=== PATIENT | female | born 1955 | race Caucasian/White ===

== ENCOUNTER 2017-02-07 22:02 | Emergency (ER) | payer BC, OTHER ==
[2017-02-08] MEDS ORDERED: CLONIDINE HCL 0.1 MG TABLET PO ONE (00:50)
[2017-02-08] MEDS ORDERED: CLONIDINE HCL 0.1 MG TABLET ONE (00:56)
--- NOTE | 2017-02-08 02:12 | ERNOTE ---
Medical Problem HPI - Narrative Date of Service: 02/08/17 - General Chief Complaint: Screening, Blood Pressure Time Seen by Provider: 02/08/17 00:49 - Immun/Allergies/Home Medications Immunizations: IMMUNIZATION HX Immunizations Up to Date No History of Influenza Vaccine Yes Hx Pneumococcal Vaccination Yes Allergies/Adverse Reactions: Allergies CAIN Inhibitors [Cain Inhibitors] Adverse Reaction (Mild, Verified 01/16/16 20:19) cough Home Medications: HOME MEDICATIONS Alprazolam [Xanax] 0.5 - 1 mg PO HS PRN 09/22/12 [Last Taken 11/14/14] Aspirin [Aspirin Chewable] 81 mg PO DAILY 09/22/12 [Last Taken 11/14/14] Albuterol Sulfate [Proair Hfa] 1 - 2 puff IH Q4H PRN #1 inhaler 11/13/14 [Last Taken 11/14/14] Albuterol Sulfate/Ipratropium [Duoneb 2.5-0.5MG/3ML Soln] 3 ml IH TID #7 nebu [Last Taken 11/14/14] Ibuprofen [Motrin] 2 tab PO Q8H PRN #0 11/13/14 [Last Taken 11/14/14] Acetaminophen [Tylenol] 650 mg PO Q6H PRN 01/16/16 [Last Taken Unknown] Cyclobenzaprine HCl [Flexeril] 10 mg PO TID PRN #30 tablet 01/17/16 [Last Taken Unknown] Losartan/Hydrochlorothiazide [Hyzaar 100-25 Tablet] 1 each PO DAILY 02/07/17 [ Last Taken Unknown] Potassium Chloride [K-Dur] 20 meq PO DAILY 02/07/17 [Last Taken Unknown] - History of Present History Narrative: PATIENT IS HERE FOR CONCERNS ABOUT HER BLOOD PRESSURE BEING TOO HIGH EVER SINCE PCP MADE A MEDICATION CHANGE ( TWO WEEKS AGO) BECAUSE HER INSURANCE WOULD NOT COVER HER OLD MEDICATION, BENICAR. HE SAW HER SATURDAY AND ADDED A DIURETIC AND WANTS TO SEE HER BACK ON SATURDAY FOR RECHECK. SHE SAYS AT HOME TONIGHT IT WAS GOING UP TO 200/100 RANGE. SHE C/O FEELING FUNNY IN THE HEAD. NO WEAKNESS OR SLURRED SPEECH OR VISUAL PROBLEMS. Review of Systems - Review of Systems Constitutional: Present: See HPI EYE: Present: no symptoms reported ENT: Present: no symptoms reported Respiratory: Present: no symptoms reported Cardiology: Present: edema Gastrointestinal/Abdominal: Present: no symptoms reported Genitourinary: Present: no symptoms reported Musculoskeletal: Present: no symptoms reported Skin: Present: no symptoms reported Neurological: Present: See HPI, dizziness/light-headedness Endocrine: Present: no symptoms reported Hematologic/Lymphatic: Present: no symptoms reported Psych: Present: no symptoms reported All Other Systems: All systems neg except as marked - Patient's Past Medical History Patient History - Medical: Anxiety Patient History - Cardiac/Respiratory: Hypertension, Hyperlipidemia, Pneumonia Patient History - Cancer: No Hx of Cancer Patient History - Surgical Procedures: Appendectomy, Hysterectomy, Other Patient History - Other: None - Family History Mother Family History - Medical: Other Father Family History - Medical: Diabetes Type 2 Sister Family History - Medical: Diabetes Type 2 Insulin Dependent, Other Brother Family History - Medical: Diabetes Type 2, Other - Social History Living Situations: home Abuse History: No History of abuse Psych History: Hx of Anxiety Smoking Status: Former smoker Have you smoked in the past 12 months: No Do you dip or chew tobacco: No Alcohol Use: none Drug Use: none - Immunizations Immunizations Up to Date: No Hx Pneumococcal Vaccination: Yes History of Influenza Vaccine: Yes Physical Exam - Physical Exam General Appearance: Present: wd/wn, alert, no apparent distress - OBESE SL. ANXIOUS LADY WITH HTN. Eye Exam: Normal inspection: bilateral Ears, Nose, Throat: Present: normal ENT inspection Neck: Present: normal inspection. Absent: carotid bruit Respiratory: Present: no respiratory distress, normal breath sounds, no accessory muscle use, chest nontender, lungs clear Cardiovascular/Chest: Present: regular rate, rhythm, no murmur, normal peripheral pulses Extremity Exam: Present: normal inspection, normal range of motion Neurological Exam: Present: alert, oriented, normal mood/affect Skin Exam: Present: normal color ED Progress - Vital Signs Patient's Vital Signs:: I have reviewed the patient's vital signs. Vital Signs: Vital Signs 02/07/17 02/07/17 02/07/17 22:11 22:23 23:30 Temperature 36.9 C Pulse Rate 92 87 Respiratory 20 19 Rate Blood Pressure 188/103 188/103 208/105 O2 Sat by Pulse 96 97 Oximetry 02/07/17 02/08/17 02/08/17 23:45 00:15 00:56 Temperature Pulse Rate 87 84 85 Respiratory 19 21 H 20 Rate Blood Pressure 198/100 185/102 185/102 O2 Sat by Pulse 96 97 97 Oximetry 02/08/17 02/08/17 02/08/17 00:58 01:00 01:25 Temperature Pulse Rate 86 89 89 Respiratory 20 20 Rate Blood Pressure 185/102 188/93 173/87 O2 Sat by Pulse 97 96 Oximetry - EKG EKG: NSR, other - LAD, , LOW VOLTAGENO CHANGE FROM 11/03/2010 - Progress/Reassessment Chief Complaint: Screening, Blood Pressure Plan - Plan Plan: PT'S BP DECREASED AFTER CLONIDINE 0.02 MG P.O. AND SHE FEELS BETTER. MOST RECENT PRESSURE = 157/74 Departure - Departure Clinical Impression: Hypertension Qualifiers: Hypertension type: essential hypertension Qualified Code(s): I10 - Essential ( primary) hypertension Disposition: Home Follow Up Needed Condition: Good Instructions: Hypertension, [id number] Additional Instructions: RECHECK WITH YOUR FAMILY DOCTOR SATURDAY PLANNED . LET THEM KNOW YOU WERE HERE AND WE GAVE A SINGLE DOSE OF CLONIDINE 0.02 MG P.O. WHICH BROUGHT IT DOWN. HE WILL LET YOU KNOW IF HE THINKS ANY MEDICATION ADJUSTMENTS ARE NEEDED. Referrals: Karen Portillo MD [Primary Care Provider] -
[2017-02-08 02:44] VITALS: BP 150/82
== END 2017-02-08 02:05 | disposition home or self-care (01) ==
LOC: ER 22:02
DX: I10 Essential (primary) hypertension (principal); F41.9 Anxiety disorder, unspecified; Z87.891 Personal history of nicotine dependence

== ENCOUNTER 2017-02-13 00:11 | Emergency (ER) | payer OTHER ==
--- NOTE | 2017-02-13 01:04 | ERNOTE ---
Medical Problem HPI - General Chief Complaint: Screening, Blood Pressure Time Seen by Provider: 02/13/17 00:45 Source: patient, family - Immun/Allergies/Home Medications Immunizations: IMMUNIZATION HX Immunizations Up to Date Yes History of Influenza Vaccine Yes Hx Pneumococcal Vaccination Yes Allergies/Adverse Reactions: Allergies CAIN Inhibitors [Cain Inhibitors] Adverse Reaction (Mild, Verified 02/13/17 00:28) cough Home Medications: HOME MEDICATIONS Alprazolam [Xanax] 0.5 - 1 mg PO HS PRN 09/22/12 [Last Taken 11/14/14] Aspirin [Aspirin Chewable] 81 mg PO DAILY 09/22/12 [Last Taken 11/14/14] Albuterol Sulfate [Proair Hfa] 1 - 2 puff IH Q4H PRN #1 inhaler 11/13/14 [Last Taken 11/14/14] Albuterol Sulfate/Ipratropium [Duoneb 2.5-0.5MG/3ML Soln] 3 ml IH TID #7 nebu [Last Taken 11/14/14] Ibuprofen [Motrin] 2 tab PO Q8H PRN #0 11/13/14 [Last Taken 11/14/14] Acetaminophen [Tylenol] 650 mg PO Q6H PRN 01/16/16 [Last Taken Unknown] Losartan/Hydrochlorothiazide [Hyzaar 100-25 Tablet] 1 each PO DAILY 02/07/17 [ Last Taken Unknown] Potassium Chloride [K-Dur] 10 meq PO DAILY 02/07/17 [Last Taken Unknown] Amlodipine Besylate 5 mg PO HS 02/13/17 [Last Taken 02/12/17 20:30] - History of Present History Narrative: Pt has been controlled on a single anti-hypertensive agent for many years. Her insurance company decided to not cover that medication anymore. Since switching to another agent she has had very high blood pressure and had her medications changes multiple times. Timing: getting worse Severity: moderate, severe Modifying Factors - (Improves): Present: medication - improved her BP this am but didn't help tonight Review of Systems - Review of Systems Constitutional: Present: no symptoms reported EYE: Present: no symptoms reported ENT: Present: no symptoms reported Respiratory: Present: no symptoms reported. Absent: shortness of breath Cardiology: Absent: chest pain, palpitations Gastrointestinal/Abdominal: Present: no symptoms reported Genitourinary: Present: no symptoms reported Musculoskeletal: Absent: back pain, muscle pain Skin: Present: no symptoms reported Neurological: Present: headache. Absent: dizziness/light-headedness Endocrine: Present: no symptoms reported Hematologic/Lymphatic: Present: no symptoms reported Psych: Present: no symptoms reported - Patient's Past Medical History Patient History - Medical: Anxiety Patient History - Cardiac/Respiratory: Hypertension, Hyperlipidemia, Pneumonia Patient History - Cancer: No Hx of Cancer Patient History - Surgical Procedures: Appendectomy, Hysterectomy, Other Patient History - Other: None - Family History Mother Family History - Medical: Other Father Family History - Medical: Diabetes Type 2 Sister Family History - Medical: Diabetes Type 2 Insulin Dependent, Other Brother Family History - Medical: Diabetes Type 2, Other - Social History Living Situations: home Abuse History: No History of abuse Psych History: Hx of Anxiety, Current tx/ever been on anti-depressants or anti- anxiety meds Smoking Status: Former smoker Alcohol Use: none Drug Use: none - Immunizations Immunizations Up to Date: Yes Hx Pneumococcal Vaccination: Yes History of Influenza Vaccine: Yes Physical Exam - Physical Exam General Appearance: Present: wd/wn, alert, mild distress Eye Exam: Normal inspection: bilateral, PERRL: bilateral, EOMI: bilateral Ears, Nose, Throat: Present: normal ENT inspection Neck: Present: normal inspection, nontender Respiratory: Present: no respiratory distress, normal breath sounds, lungs clear Cardiovascular/Chest: Present: regular rate, rhythm, no murmur, normal peripheral pulses Extremity Exam: Present: normal inspection, no edema Neurological Exam: Present: alert, oriented, normal mood/affect, no motor/ sensory deficits ED Progress - Vital Signs Vital Signs: Vital Signs 02/13/17 00:20 Temperature 36.6 C Pulse Rate 79 Respiratory 18 Rate Blood Pressure 184/99 O2 Sat by Pulse 95 Oximetry - EKG EKG: NSR, other - left axis deviation. Pattern consistant with pulmonary disease EKG read: Interp. by me - Progress/Reassessment Chief Complaint: Screening, Blood Pressure Progress:: Improved Progress Note-Subjective: 02/13/17 02:12 BP improved and headache is getting better Departure - Departure Clinical Impression: Hypertension Qualifiers: Hypertension type: essential hypertension Qualified Code(s): I10 - Essential ( primary) hypertension Disposition: Home Follow Up Needed Condition: Good Instructions: Hypertension, [id number] Additional Instructions: you may take one additional amlodipine at night if your blood pressure is elevated. See your regular doctor as scheduled and discuss these changes and how your blood pressure has responded Referrals: Karen Portillo MD [Primary Care Provider] -
[2017-02-13] MEDS ORDERED: amLODIPine BESYLATE 5 MG TABLET PO ONE (01:30)
[2017-02-13 02:00] VITALS: BP 144/61
== END 2017-02-13 02:20 | disposition home or self-care (01) ==
LOC: ER 00:11
DX: I10 Essential (primary) hypertension (principal); F41.9 Anxiety disorder, unspecified; E78.5 Hyperlipidemia, unspecified